=== PATIENT | male | born 1990 | race Caucasian/White ===

== ENCOUNTER 2020-05-22 15:08 | Emergency (ER) | payer SELFPAY ==
--- NOTE | 2020-05-22 15:16 | ED.MALEGU ---
HPI - Male Genitourinary General Chief complaint: Urogenital-Male Stated complaint: possible uti Time Seen by Provider: 05/22/20 15:16 Source: patient and RN notes reviewed History of Present Illness HPI Narrative: Patient is a 29-year-old male who presents the urgent care with complaints of yellow to white penile discharge and itching at the tip of the penis. Patient states that he had a UTI approximately 3 to 5 years ago and his symptoms were very similar . Patient denies any recent urinary tract infections. Denies any dysuria, hematuria, frequency, urgency, suprapubic pressure or low back pain. Denies any fever, chills, nausea, vomiting. Patient states that him and his are not promiscuous and he does not believe that he needs to be checked for any STDs. No other acute complaints. No acute distress noted. Patient read the plan of care. Related Data Home Medications Medication Instructions Recorded Confirmed No Home Medications 05/22/20 05/22/20 Allergies Allergy/AdvReac Type Severity Reaction Status Date / Time No Known Allergies Allergy Verified 05/22/20 15:31 Review of Systems Review of Systems: Narrative: CONSTITUTIONAL: Denies fever, chills, or sweats. EYES: Denies visual changes, redness, or discharge. ENT: Denies rhinorrhea, congestion, sore throat, or otalgia. CARDIOVASCULAR: Denies chest pain, palpitations, or edema. RESPIRATORY: Denies cough or dyspnea. GASTROINTESTINAL: Denies abdominal pain, nausea, vomiting, or diarrhea. GENITOURINARY: Reports of penile discharge and itchiness SKIN: Denies rash or itching. MUSCULOSKELETAL: Denies back pain, joint pain, or myalgia. NEUROLOGIC: Denies headache, numbness, or weakness. All other systems reviewed are negative, except as documented in HPI. [facility] Family History Family History (Updated 02/09/18 @ 08:28 by DOCTOR UNKNOWN) Grandparent Cerebrovascular accident Family history of lung cancer Father Malignant neoplasm of prostate Other Asthma Hypertension Social History Social History Smoking status: Never smoker Alcohol intake: current Comments At the time of my signature, I reviewed and agree with the nursing past medical, surgical, social, and family history. There is no relevant family history pertinent to the patient complaint. Exam Narrative: Exam Narrative: GENERAL: This is a well-nourished, well-developed patient, in no apparent distress. HEAD: normocephalic, atraumatic. EYES: PERRL. Sclera clear/white. Vision is grossly intact. EARS: External ears normal NOSE: External nose normal with no obvious nasal discharge THROAT: Mucous membranes moist NECK: Neck supple GASTROINTESTINAL: Abdomen soft, non-tender, nondistended. SKIN: warm, intact with no suspicious lesions or rash, good texture and turgor. NEURO: awake, alert, and oriented to person, place and time. There were no obvious focal neurologic abnormalities. EXTREMITIES: No clubbing, cyanosis, or edema. BACK: Negative bilateral CVA tenderness Course Vital Signs Vital signs: Vital Signs Temperature 98.8 F 05/22/20 15:23 Pulse Rate 53 L 05/22/20 15:23 Respiratory Rate 16 05/22/20 15:23 Blood Pressure 121/67 05/22/20 15:23 Pulse Oximetry 99 05/22/20 15:23 Temperature 98.8 F 05/22/20 15:23 Pulse Rate 53 L 05/22/20 15:23 Respiratory Rate 16 05/22/20 15:23 Blood Pressure 121/67 05/22/20 15:23 Pulse Oximetry 99 05/22/20 15:23 Reviewed MDM - Male Genitourinary MDM Narrative Medical decision making narrative: Reviewed lab results with the patient. He is aware that his urine analysis is negative and not indicative of a urinary tract infection. Patient does not wish to have STD checks at this time and is also deferring urine culture. Therefore advised the patient to increase water intake and avoid sugary and caffeinated drinks. If he develops any increase in symptoms associated with fever, nausea, vomiting, increased penile discharge
[2020-05-22 15:23] VITALS: BP 121/67; PULSE 53; RESP 16; TEMP 37.1; O2SAT 99
== END 2020-05-22 15:45 | disposition home or self-care (01) ==
PROVIDERS: Emergency Provider Nurse Practitioner Family
DX: R36.9 Urethral discharge, unspecified (principal)
CPT/HCPCS: 81003; 99202; G0463